=== PATIENT | female | born 1965 | race Caucasian/White ===

== ENCOUNTER → 2021-05-01 18:21 | Outpatient (CLI) | payer OTHER ==
[2021-05-01 18:45] LABS: BASOPHILS 0.6 % (0-2); EOSINOPHILS 1.2 % (0-7); HEMATOCRIT 23.3 % (36.0-48.0); LYMPHOCYTES 32.8 % (15-50); MCH 32.6 pg (26.0-34.0); MCHC 32.2 g/dL (31.0-37.0); MEAN PLATELET VOLUME 7.8 fL (7.4-10.4); MONOCYTES 10.8 % (2-11); NEUTROPHILS 54.6 % (40-80); PLATELET COUNT 240 10x3/uL (130-400); RBC 2.31 10x6/uL (4.00-5.40); RDW 18.9 % (11.5-14.5); WBC 6.3 10x3/uL (4.8-10.8)
[2021-05-01 18:54] LABS: HEMOGLOBIN 7.5 g/dL (12-16)
[2021-05-01 18:55] LABS: ALBUMIN 1.6 g/dL (3.4-5.0); ALKALINE PHOSPHATASE 61 U/L (30-120); ALT (SGPT) 35 U/L (10-68); CALCIUM 7.2 mg/dL (8.5-10.1); CARBON DIOXIDE 31.5 mmol/L (21.0-32.0); CHLORIDE - SERUM 108 mmol/L (98-107); CREATININE - SERUM 0.5 mg/dL (0.6-1.3); MAGNESIUM - SERUM 1.8 mg/dL (1.8-2.4); PHOSPHOROUS 2.5 mg/dL (2.5-4.9); POTASSIUM - SERUM 4.4 mmol/L (3.5-5.1); PRE-ALBUMIN 16.8 mg/dL (18.0-35.7); PROTEIN - SERUM 4.4 g/dL (6.4-8.2); SODIUM 141 mmol/L (136-145); TRIGLYCERIDE 46 mg/dL (30-200); eGFR NON AFRICAN AMERICAN > 90 mL/min (90-120)
[2021-05-01 19:07] LABS: CALC OSMOLALITY 276 mosm/kg (275-300); UREA NITROGEN 9 mg/dL (7-18)
[2021-05-01 19:08] LABS: GLUCOSE 50 mg/dL (74-106)
== END | disposition home or self-care (01) ==
LOC: D.LABREF 18:21
PROVIDERS: ATTEND Family Medicine
DX: E43 Unspecified severe protein-calorie malnutrition (principal); D64.9 Anemia, unspecified; Z45.2 Encounter for adjustment and management of vascular access device